=== PATIENT | male | born 1980 | race Caucasian/White ===

== ENCOUNTER 2024-04-07 14:46 | Outpatient (AMB) | payer BC, SELFPAY ==
--- NOTE | 2024-04-07 14:59 | MHC.PC.OV ---
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 Intake Note: establish care Allergies No Known Allergies Allergy (Verified 04/07/24 15:03) Medication List - Last Reconciled 04/07/24 by Gene Romero MD No Known Home Meds Tobacco use date assessed: 04/07/24 Dental Screening Dental Screen Date: 04/07/24 Did you have a dental visit in the last 12 months?: Yes Did you have a dental problem in the last 6 months where you did not have access to dental care?: No Was dental information given to patient?: Patient has dentist HPI ENVIRONMENTAL SERVICE AIDE requesting physical HPI Details New Patient Prior PCP: None Last office visit/CPE: - Acute issue(s): PMHx: R malleolus fracture, poison braeden SurgHx: Repair?right?malleolar?fracture 2017 FHx: Dad: Colon polyps, early 50s, HTN. Grandmother: Colon cancer. SocHx: Nonsmoker. EtOH 1-2 glass wine per week. Eats a healthy diet. Keeps himself active at a farm. HPI Comments History of Present Illness Details Documentation assistance for Gene Romero MD, was provided by Lawrence Falcon, Ophthalmic Lens Inspector on 04/07/2024 at 3:43 PM EST. I, Dr. Romero, have read, observed, and verified documentation. [facility] Social History (Updated 04/07/24 @ 15:03 by Millie Boykin [facility]) Housing: House Patient Tobacco Use Status: Never used Tobacco e-Cigarette/Vaping Use: Never Used Second Hand Smoke Exposure: No Use of substances other than those prescribed or required for medical reasons: No service: Yes Current occupational status: employed Current occupation: [employer] Current occupational exposures/hazards: Yes Cognitive needs: No Hearing needs: No Vision needs: No Questionnaire PHQ-9 Over the last 2 weeks, how often have you been bothered by any of the following problems? 1. Little interest or pleasure in doing things: not at all 2. Feeling down, depressed, or hopeless: not at all 3. Trouble falling or staying asleep, or sleeping too much: not at all 4. Feeling tired or having little energy: not at all 5. Poor appetite or overeating: not at all 6. Feeling bad about yourself - or that you are a failure or have let yourself or your family down: not at all 7. Trouble concentrating on things, such as reading the newspaper or watching television: not at all 8. Moving or speaking so slowly that other people could have noticed. Or the opposite - being so fidgety or restless that you have been moving around a lot more than usual: not at all 9. Thoughts that you would be better off or of hurting yourself in some way: not at all Total score: 0 Depression Screening Interpretation: Negative Depression Screening Done: Yes 85698 - PHQ-9 Billing: Yes Source: Developed by Drs. Clarence Thorne, Yue Gaytan, Marty Gray and colleagues, with an educational angela from [employer]. Thrive Questionnaire Date Thrive assessed: 04/07/24 I am a: Patient What is your living situation today?: I have a steady place to live Within the past 12 months, did the food you bought not last and you didn't have the money to get more?: Never true Within the past 12 months, did you worry whether your food would run out before you got money to buy more?: Never true Do you have trouble paying for medicines?: No Do you have trouble getting transportation to medical appointments?: No Do you have trouble paying your heating and electricity bill?: No Do you have trouble taking care of your child, family member or friend?: No Do you have trouble with day-to-day activities such as bathing, preparing meals, shopping, managing finances, etc.?: No Are you currently unemployed and looking for a job?: No Are you interested in more education?: No Please select the resources that you would like help with: None Currently or been in a relationship where the following occur: No concerns reported THRIVE Score: 0 AUDIT C Alcohol Use Questionnaire (AUDIT-C) 1. How often do you have a drink containing alcohol?: 2-3 times a week 2. How many drinks containing alcohol do you have on a typical day when you are drinking?: 1 or 2 3. How often do you have six or more drinks on one occasion?: Less than monthly Total Score: 4 JAIMIE-7 AMB Questionnaire JAIMIE-7 Date JAIMIE - 7 assessed: 04/07/24 Feeling nervous, anxious, or on edge: 0 = Not at all Not being able to stop or control worryin = Not at all Worrying too much about different things: 0 = Not at all Trouble relaxin = Not at all Being so restless that it is hard to sit still: 0 = Not at all Becoming easily annoyed or irritable: 0 = Not at all Feeling afraid as if something awful might happen: 0 = Not at all Total JAIMIE-7 score (0-4 normal; 5-9 mild; 10-14 moderate; 15-21 severe): 0 Source: Developed by Drs. Clarence Thorne, Yue Gaytan, Marty Gray and colleagues, with an educational angela from [employer]. JAIMIE-7 Assessment Billing JAIMIE-7 Assessment Tool: JAIMIE-7 Assessment 11483 Review of Systems Const Denies chills, Denies fatigue, Denies fever(s), Denies headache(s) and Denies weakness Eyes Denies change in vision ENT Denies dizziness, Denies headache(s), Denies hearing loss, Denies nasal congestion, Denies sinus pain, Denies sinus pressure and Denies sore throat Card Denies chest pain, Denies lightheadedness, Denies dyspnea and Denies other (palpitations) Resp Denies cough, Denies dyspnea and Denies wheezing GI Denies abdominal pain, Denies melena, Denies hematochezia, Denies change in bowel habits, Denies dyspepsia and Denies nausea Denies hematuria and Denies dysuria Musc Denies abnormal gait, Denies myalgias, Denies arthralgias, Denies numbness and Denies tingling Skin/Breast Denies rash, Denies unusual bruising and Denies wounds Neuro Denies abnormal gait, Denies dizziness, Denies headache(s), Denies memory loss, Denies numbness, Denies Sensory deficit (Neuro), Denies tingling and Denies weakness Psych Denies anxiety, Denies depression and Denies memory loss Endo Denies cold intolerance, Denies fatigue, Denies heat intolerance, Denies polydipsia and Denies polyuria Adarsh/Lymph Denies easy bleeding and Denies easy bruising Aller/Immun Denies wheezing Physical exam (Primary Care) Vital Signs: Last Vital Signs Temp 98.0 F 04/07/24 15:06 Pulse 69 04/07/24 15:06 Resp 16 04/07/24 15:06 BP 110/68 04/07/24 15:06 Pulse Ox 99 04/07/24 15:06 Oxygen Delivery Method Room Air 04/07/24 15:06 BMI result Body Mass Index 27.8 Tobacco/Smoking Status: Tobacco use Status Tobacco use date assessed 04/07/24 04/07/24 15:09 Patient Tobacco Use Status Never used Tobacco 04/07/24 15:09 e-Cigarette/Vaping Use Never Used 04/07/24 15:09 PHQ-9: PHQ-9 Score PHQ-9: Total score 0 04/07/24 15:30 Depression Screening Interpretation: Negative Thrive Assessment: Date of Thrive Assessment Date Thrive assessed 04/07/24 04/07/24 15:09 Currently or been in a relationship where the following occur: No concerns reported Const General: no acute distress, well developed, alert and awake Nutritional Appearance: well nourished Orientation/consciousness: patient oriented x3 HENMT Head: Yes normocephalic and Yes atraumatic Ears: hearing grossly normal bilaterally and TM's normal bilaterally General nose exam: Normal external nose present and Normal nares present Mouth: Normal oral and palatal mucosa present and moist mucous membranes Teeth and gingiva: dentition normal Throat: Yes posterior oropharynx normal Eyes General: appearance normal, both eyes and all related structures Pupils: Equal, round and reactive pupils present and Pupil accommodation reflex normal EOM: EOMs intact bilaterally Neck Neck: Yes normal visual inspection, Yes no lymphadenopathy and Yes trachea midline Thyroid: Thyroid normal Carotids: no bruits Lymphatic: no lymphadenopathy noted Chest Chest palpation & inspection: normal inspection of the chest Resp Effort & Inspection: normal respiratory effort Auscultation: clear to auscultation bilaterally Cardio Rate: regular rate Rhythm: regular rhythm Heart sounds: S1 normal heart sound present, S2 normal heart sound present, no gallops, no murmurs and no rubs Bruits: no abdominal aortic bruits and no carotid bruits GI Palpation (GI): No Abdominal aortic bruit present, Soft to palpation, nontender, No hepatosplenomegaly present and No Rebound tenderness present Auscultation: normal bowel sounds General: Yes no CVA tenderness Back/Spine/Pelvis Back: no CVA tenderness Cervical Spine: cervical ROM normal and No Cervical spine tenderness Thoracic/Lumbar Spine: thoraco-lumbar ROM normal, No pain with thoraco-lumbar ROM, No thoracic spinal tenderness and No lumbar spinal tenderness Skin Lesions: no lesions Rashes: no rashes Trauma: no lacerations or abrasions Wounds: no wounds Nails: normal Neuro General: patient oriented x3 Cranial nerves: Yes Equal, round and reactive pupils present Cognition (Neuro): normal cognition Gait exam (Neuro): Normal gait present Motor exam (neuro): 5/5 motor strength present throughout Sensory Exam: No Sensory deficit (Neuro) Deep tendon reflexes (DTR's): Right patellar reflex intensity grade: 2+ and Left patellar reflex intensity grade: 2+ Extrem General: Yes normal to inspection and No edema Psych Appearance: grossly normal Affect: normal affect Attitude: cooperative Thought process: Normal thought process present Assessment and Plan Assessment & Plan (1) Adult general medical exam: Code(s): Z00.00 - Encounter for general adult medical examination without abnormal findings Plan: 43-year-old?male?presents?as?new?patient?for?complete?physical?exam Encouraged?healthy?diet?with?active?lifestyle?and?plenty?of?exercise (2) Screening for colon cancer: Code(s): Z12.11 - Encounter for screening for malignant neoplasm of colon Plan: Strong?family?history?of?colon?cancer?and?polyps. Referred?to?Gastroenterology (3) Screening for prostate cancer: Code(s): Z12.5 - Encounter for screening for malignant neoplasm of prostate Plan: Check?PSA Orders: Orders Microalbumin, Random (w Creat) Today I10 - Essential (primary) hypertension, Z00.00 - Encounter for general adult medical examination without abnormal findings Prostate Specific Antigen Scr Today Z00.00 - Encounter for general adult medical examination without abnormal findings, Z12.5 - Encounter for screening for malignant neoplasm of prostate TSH reflex Free T4 Today Z00.00 - Encounter for general adult medical examination without abnormal findings Lipid Panel Today Z00.00 - Encounter for general adult medical examination without abnormal findings UA and rflx microscopic Today Z00.00 - Encounter for general adult medical examination without abnormal findings Comprehensive [place]. Panel Fast Today Z00.00 - Encounter for general adult medical examination without abnormal findings Referrals Gastroenterology Referral Z12.11 - Encounter for screening for malignant neoplasm of colon, Z83.719 - Family history of colon polyps, unspecified Coding Level of Care Code New Pt Level 3 (23155) New Pt Prev Care 40-64y(57195) Diagnoses Adult general medical exam Z00.00 Screening for colon cancer Z12.11 Screening for prostate cancer Z12.5 Additional Codes JAIMIE-7 Assessment Billing - JAIMIE-7 Assessment Tool: JAIMIE-7 Assessment 93823 ([id number])
[2024-04-07 15:06] VITALS: BP 110/68; PULSE 69; RESP 16; TEMP 36.7; O2SAT 99; BMI 27.8
== END 2024-04-07 15:50 | disposition home or self-care (01) ==
PROVIDERS: PCP Family Medicine; Visit Provider Family Medicine
DX: Z00.00 Encounter for general adult medical examination without abnormal findings (principal); Z12.11 Encounter for screening for malignant neoplasm of colon; Z12.5 Encounter for screening for malignant neoplasm of prostate

== ENCOUNTER → 2024-04-07 14:46 | Outpatient (BNVA) | payer BC, SELFPAY | PROVIDERS: Visit Provider Family Medicine | DX: Z00.00 Encounter for general adult medical examination without abnormal findings (principal) | CPT/HCPCS: 96127 ==

== ENCOUNTER 2024-05-15 06:33 | Outpatient (REF) | payer BC, SELFPAY ==
[2024-05-15 07:49] LABS: Alanine Aminotransferase 23 U/L (0-40); Albumin Level 4.1 g/dL (3.5-5.0); Alkaline Phosphatase 109 U/L (39-117); Anion Gap 14 (12-20); Aspartate Amino Transferase 33 U/L (5-37); Bilirubin Total 0.4 mg/dL (0.0-1.0); Blood Urea Nitrogen 13 mg/dL (9-16); Calcium 9.4 mg/dL (8.4-10.2); Carbon Dioxide 26 mmol/L (22-29); Chloride 100 mmol/L (96-108); Cholesterol 268 mg/dL (<200); Estimated Glomerular Filt Rate > 60; Glucose Fasting 293 mg/dL (60-99); HDL Cholesterol 47 mg/dL (>40); Potassium 4.6 mmol/L (3.3-5.1); Sodium 135 mmol/L (135-145); Total Protein 7.5 g/dL (6.5-8.0); Triglycerides 502 mg/dL (<150)
[2024-05-15 07:57] LABS: Appearance Urine Clear; Color Urine Yellow; Glucose Urine UA >=1000 mg/dL (Negative); Leukocyte Esterase Urine Negative (Negative); Nitrite Urine Negative (Negative); PH 6.5 (5.0-9.0); Specific Gravity - Urine 1.025 (1.005-1.025); UMIC TRIGGER UA YES; Urine Blood Negative (Negative); Urine Ketones Trace mg/dL (Negative); Urine Protein Negative (Neg-Trace)
[2024-05-15 08:01] LABS: Prostate Specific Antigen Scr 0.65 ng/mL (<0.05-4.0)
[2024-05-15 08:02] LABS: Bacteria Urine None Seen (None Seen); Hyaline Casts Urine 0-2 /LPF (0-2); RBC Urine 0-2 /HPF (0-2); Squamous Epithelial Cell Urine 0-2 /HPF (0-2); WBC Urine 0-5 /HPF (0-5)
[2024-05-15 08:19] LABS: Creatinine Urine 89.79 mg/dL; Microalbumin Urine < 5.0 mg/L
== END 2024-05-15 06:34 | disposition home or self-care (01) ==
LOC: HO.LAB 06:33
PROVIDERS: PCP Family Medicine; Visit Provider Family Medicine
DX: Z00.00 Encounter for general adult medical examination without abnormal findings (principal); I10 Essential (primary) hypertension; Z12.5 Encounter for screening for malignant neoplasm of prostate
CPT/HCPCS: 36415; 80053; 80061; 81001; 82043; 82570; 84153; 84443

== ENCOUNTER → 2024-05-26 14:03 | Outpatient (AMB) | payer BC, SELFPAY ==
--- NOTE | 2024-05-26 14:01 | A.OFFPC_ITS ---
Intake Visit Reasons: f/u CPE-labs via telemedicine Allergies No Known Allergies Allergy (Verified 05/26/24 14:01) Tobacco use date assessed: 04/07/24 Dental Screening Dental Screen Date: 04/07/24 HPI f/u CPE-labs via telemedicine HPI Details 43 y/o male presents to f/u CPE-labs via telemedicine. Labs drawn 05/15/24. Reviewed labs with pt. Fasting glucose of 293. He states he was fasting for about 10 hours. Triglycerides 502. TC 268. LDL TNP. HDL 47. Has not been diagnosed with diabetes in the past. Denies any excessive thirst/urination. [facility] Social History (Updated 04/07/24 @ 15:03 by Millie Boykin [facility]) Housing: House Patient Tobacco Use Status: Never used Tobacco e-Cigarette/Vaping Use: Never Used Second Hand Smoke Exposure: No service: Yes Current occupational status: employed Current occupation: [employer] Current occupational exposures/hazards: Yes Cognitive needs: No Hearing needs: No Vision needs: No Questionnaire Thrive Questionnaire Date Thrive assessed: 04/07/24 JAIMIE-7 AMB Questionnaire JAIMIE-7 Date JAIMIE - 7 assessed: 04/07/24 Source: Developed by Drs. Clarence Thorne, Yue Gaytan, Marty Gray and colleagues, with an educational angela from [employer]. Review of Systems Const Denies chills, Denies fatigue, Denies fever(s), Denies headache(s) and Denies weakness ENT Denies dizziness and Denies headache(s) Card Denies dyspnea Resp Denies cough, Denies dyspnea, Denies wheezing and Denies other (shortness of breath) Musc Denies numbness and Denies tingling Neuro Denies dizziness, Denies headache(s), Denies numbness, Denies tingling and Denies weakness Psych Denies anxiety and Denies depression Endo Denies fatigue Aller/Immun Denies wheezing Physical exam (Primary Care) Tobacco/Smoking Status: Tobacco use Status Tobacco use date assessed 04/07/24 05/26/24 14:02 Patient Tobacco Use Status Never used Tobacco 05/26/24 14:02 e-Cigarette/Vaping Use Never Used 05/26/24 14:02 Thrive Assessment: Date of Thrive Assessment Date Thrive assessed 04/07/24 05/26/24 14:02 Telehealth Telehealth Telehealth Platform: Telephone Location of provider rendering services: practice address Location of patient: address on file Patient Identification confirmed using: Name, : Yes Telehealth method: voice only Patient verbally consented to treatment: Yes Patient verbally consented to billing insurance company: Yes Patient informed of any privacy concerns related to visit: Yes Minutes spent on Phone/Video with Pt.: 6 Coding Level of Care Code Tele Est Pt Level 2 (22517) Diagnoses Elevated fasting glucose R73.01 Hypertriglyceridemia E78.1 Assessment & Plan Assessment & Plan (1) Elevated fasting glucose: Code(s): R73.01 - Impaired fasting glucose Category: Medical Plan: Significantly?elevated?fasting?blood?sugar?though?patient?is?unaware?of?any?hist ory?of?diabetes. He?thinks?that?he?had?an?adequate?fast Will?recheck?this?follow-up?with?him?within?a?month Will?also?check?an?A1c (2) Hypertriglyceridemia: Code(s): E78.1 - Pure hyperglyceridemia Category: Medical Plan: Triglycerides?greater?than?500 Start?fenofibrate Will?recheck?this?and?follow-up?at?next?visit
== END ==
LOC: HO.HMCFM 14:03
PROVIDERS: PCP Family Medicine; Visit Provider Family Medicine
DX: R73.01 Impaired fasting glucose (principal); E78.1 Pure hyperglyceridemia

== ENCOUNTER 2024-06-25 06:45 | Outpatient (REF) | payer BC, SELFPAY ==
--- OUTSIDE RECORDS SUMMARY | 2024-06-25 06:47 | XMS_ITS ---
Author Name [facility] Organization Unknown History of Medication Use Medication Directions Dispensed Refills Start Date End Date Stat us fenofibrate (TRIGLIDE) 160 MG tablet Take 160 mg by mouth. FOR 90 DAYS 06/22/2024 07/08/9999 active predniSONE (DELTASONE) 50 MG tablet Take 1 tablet (50 mg total) by mouth daily. With food. 06/22/2024 07/08/9999 aborted predniSONE (DELTASONE) 10 MG tablet Take 60 mg (= 6 tablets) by mouth daily for 2 days, then 50 mg (= 5 tablets) daily for 2 days, then 40 mg (= 4 tablets) daily for 2 days, then 30 mg (= 3 tablets) daily for 2 days, then 20 mg (= 2 tablets) daily for 2 days, then 10 mg (= 1 tablet) daily for 2 days. Take with food. 01/28/2023 active Problems Problem Status Onset Date Problem Type Date of Resoluti on Source Allergic dermatitis [facility]
[2024-06-25 07:19] LABS: Estimated Average Glucose 206 mg/dL; Hemoglobin A1C 261.8796 umol/L; Hemoglobin A1c % 8.8 % (<6.0); Total Hemoglobin (HGBA1C) 3626.4181 umol/L
[2024-06-25 07:33] LABS: Appearance Urine Clear; Color Urine Yellow; Glucose Urine UA Negative (Negative); Leukocyte Esterase Urine Negative (Negative); Nitrite Urine Negative (Negative); Urine Blood Negative (Negative); Urine Ketones Negative (Negative); Urine Protein Negative (Neg-Trace)
[2024-06-25 07:37] LABS: Alanine Aminotransferase 30 U/L (0-40); Albumin Level 4.1 g/dL (3.5-5.0); Alkaline Phosphatase 70 U/L (39-117); Anion Gap 9 (12-20); Aspartate Amino Transferase 25 U/L (5-37); Bilirubin Total 0.4 mg/dL (0.0-1.0); Blood Urea Nitrogen 14 mg/dL (9-16); Calcium 8.9 mg/dL (8.4-10.2); Carbon Dioxide 28 mmol/L (22-29); Chloride 105 mmol/L (96-108); Cholesterol 143 mg/dL (<200); Estimated Glomerular Filt Rate > 60; Glucose Fasting 201 mg/dL (60-99); HDL Cholesterol 43 mg/dL (>40); LDL Cholesterol Calculated 84 mg/dL (<100); Potassium 3.9 mmol/L (3.3-5.1); Sodium 138 mmol/L (135-145); Total Protein 7.2 g/dL (6.5-8.0); Triglycerides 84 mg/dL (<150)
== END 2024-06-25 06:46 | disposition home or self-care (01) ==
LOC: HO.LAB 06:45
PROVIDERS: PCP Family Medicine; Visit Provider Family Medicine
DX: Z00.00 Encounter for general adult medical examination without abnormal findings (principal); E78.1 Pure hyperglyceridemia; R73.01 Impaired fasting glucose
CPT/HCPCS: 36415; 80053; 80061; 81003; 83036

== ENCOUNTER 2024-07-07 14:18 | Outpatient (AMB) | payer BC, SELFPAY ==
--- NOTE | 2024-07-07 14:15 | MHC.PC.OV ---
Intake Visit Reasons: F/U appointment Intake Note: f/u labs Allergies No Known Allergies Allergy (Verified 07/07/24 14:15) Tobacco use date assessed: 04/07/24 Dental Screening Dental Screen Date: 04/07/24 HPI F/U appointment HPI Details 44 y/o male presents to f/u A1c, hypertriglyceridemia. Had started him on fenofibrate. Triglycerides improved from 502 to 84. TC 268 to 143. LDL 84. HDL 43. A1c 8.8%. He reports no prior diagnosis of diabetes. He states he has not been to a doctor in a long time. HPI Comments History of Present Illness Details Documentation assistance for Gene Romero MD, was provided by Lawrence Falcon,? Research Worker Encyclopedia on 07/07/2024 at 5:23 PM EST. I, Dr. Romero, have read, observed, and verified documentation. ?? [facility] Social History (Updated 04/07/24 @ 15:03 by Millie Boykin, [facility]) Housing: House Patient Tobacco Use Status: Never used Tobacco e-Cigarette/Vaping Use: Never Used Second Hand Smoke Exposure: No service: Yes Current occupational status: employed Current occupation: [employer] Current occupational exposures/hazards: Yes Cognitive needs: No Hearing needs: No Vision needs: No Questionnaire Thrive Questionnaire Date Thrive assessed: 04/07/24 JAIMIE-7 AMB Questionnaire JAIMIE-7 Date JAIMIE - 7 assessed: 04/07/24 Source: Developed by Drs. Clarence Thorne, Yue Gaytan, Marty Gray and colleagues, with an educational angela from [employer]. Review of Systems Const Denies chills, Denies fatigue, Denies fever(s), Denies headache(s) and Denies weakness ENT Denies dizziness and Denies headache(s) Card Denies dyspnea Resp Denies cough, Denies dyspnea, Denies wheezing and Denies other (shortness of breath) Musc Denies numbness and Denies tingling Neuro Denies dizziness, Denies headache(s), Denies numbness, Denies tingling and Denies weakness Psych Denies anxiety and Denies depression Endo Denies fatigue Aller/Immun Denies wheezing Physical exam (Primary Care) Tobacco/Smoking Status: Tobacco use Status Tobacco use date assessed 04/07/24 07/07/24 14:17 Patient Tobacco Use Status Never used Tobacco 07/07/24 14:17 e-Cigarette/Vaping Use Never Used 07/07/24 14:17 Thrive Assessment: Date of Thrive Assessment Date Thrive assessed 04/07/24 07/07/24 14:17 Telehealth Telehealth Telehealth Platform: Telephone Location of provider rendering services: practice address Location of patient: address on file Patient Identification confirmed using: Name, : Yes Telehealth method: voice only Patient verbally consented to treatment: Yes Patient verbally consented to billing insurance company: Yes Patient informed of any privacy concerns related to visit: Yes Minutes spent on Phone/Video with Pt.: 11 Coding Level of Care Code Tele Est Pt Level 2 (25458) Diagnoses Hypertriglyceridemia E78.1 Diabetes E11.9 Assessment & Plan Assessment & Plan (1) Hypertriglyceridemia: Code(s): E78.1 - Pure hyperglyceridemia Category: Medical Plan: Significant?improvement?with?fenofibrate Continue?this?medication?for?now?and?watch?saturated?fats?and?cholesterol?in?diet Patient?also?has?significantly?elevated?fasting?blood?sugar?and?this?is?likely?contributing?to?his?hypertriglyceridemia - see?below (2) Diabetes: Code(s): E11.9 - Type 2 diabetes mellitus without complications Category: Medical Plan: A1c?8.8%?is?uncontrolled?diabetes. Strong?family?history?of?diabetes?as?well Start?metformin?500?mg?b.i.d. Continue?working?on?a?diet?low?in?sugars?and?starches Will?follow-up?in?3?months.??Will?also?discuss?diabetic?teaching?and?eye?exams?at?that?time Orders: Orders Comprehensive [place]. Panel Fast Today E11.9 - Type 2 diabetes mellitus without complications, Z00.00 - Encounter for general adult medical examination without abnormal findings Hemoglobin A1c Today E11.9 - Type 2 diabetes mellitus without complications, R73.01 - Impaired fasting glucose Lipid Panel Today E78.1 - Pure hyperglyceridemia, Z00.00 - Encounter for general adult medical examination without abnormal findings Medications: New metformin 500 mg PO BID 90 days 180 tabs 2RF
== END 2024-07-07 17:05 | disposition home or self-care (01) ==
LOC: HO.HMCFM 14:18
PROVIDERS: PCP Family Medicine; Visit Provider Family Medicine
DX: E78.1 Pure hyperglyceridemia (principal); E11.9 Type 2 diabetes mellitus without complications

== ENCOUNTER 2024-09-09 07:53 | Outpatient (AMB) | payer BC, SELFPAY ==
--- OUTSIDE RECORDS SUMMARY | 2024-09-09 07:56 | XMS_ITS | Clinical Summary ---
Author Organization [facility] Address [address] [place] [address] Care Team Providers Care Service Plumber Name Role Phone Manuel Peters Primary Care Provider Unavailabl e Active Problems Problem Noted Date Diagnosed Date Hyperglycemia 01/31/2012 Immunizations Name Administration Dates Next Due Tdap 01/31/2012 Social History Tobacco Use Types Packs/Day Years Used Date Smoking Tobacco: Never Assessed Comments:Smoking Status:Eder larsen smoker Sex and Gender Information Value Date Recorded Sex Assigned at Not on file Legal Sex Male 6:07 PM EDT Gender Identity Not on file Sexual Orientation Not on file Last Filed Vital Signs Vital Sign Reading Time Taken Comments Blood Pressure 116/74 01/31/2012 10:24 AM EDT Pulse 70 01/31/2012 10:24 AM EDT Temperature 36.7 ??C (98 ??F) 01/31/2012 10:24 AM EDT Respiratory Rate - - Oxygen Saturation - - Inhaled Oxygen Concentration - - Weight 90.7 kg (200 lb 0.1 oz) 01/31/2012 10:24 AM EDT Height 185.4 cm (6' 1 ) 01/31/2012 10:24 AM EDT Body Mass Index 26.39 01/31/2012 10:24 AM EDT Plan of Treatment Health Maintenance Due Date Last Done Comments Hepatitis C Screening 1981 Hep B (1 of 3 - 19+ 3-dose series) 2000 DTaP/Tdap/Td (2 - Td or Tdap) 01/30/2022 01/31/2012 COVID-19 Vaccine ( - 2023-2 5 season) 2024 Influenza (#1) 2024 Zoster (Shingrix) (1 of 2) 2031 HPV Vaccine Aged Out No longer eligi ble based on patient's age to complete this topic Hep A Aged Out No longer eligi ble based on patient's age to complete this topic Hib Aged Out No longer eligi ble based on patient's age to complete this topic Meningococcal ACWY Aged Out No longer eligible based on patient's age to complete this topic Pneumococcal Aged Out No longer eligi ble based on patient's age to complete this topic Care Teams Service Plumber Relationship Specialty Start Date End Date Manuel Peters PCP - General 02/12/23
--- OUTSIDE RECORDS SUMMARY | 2024-09-09 07:56 | XMS_ITS | Clinical Summary ---
Author Organization [facility] Address [address] [place] [address] Care Team Providers Care Supervisor Canvas Products Name Role Phone Gene Romero MD Primary Care Provider [phone] Allergies No known active allergies Medications Medication Sig Dispensed Refills Start Date End Date Status fenofibrate (TRIGLIDE) 160 MG tablet Take 160 mg by mouth. FOR 90 DAYS 05/26/2024 Active predniSONE (DELTASONE) 50 MG tabletIndications:Dada rgic dermatitis Take 1 tablet (50 mg total) by mouth daily. With food. 5 tablet 06/20/2024 Active Active Problems No known active problems Encounters Date Type Department Care Team Description 06/20/2024 9:30 AM EST Office Visit [facility] [address] [address] Naeem Lewis MD de Villier, Daryl, PAFroyC Allergic dermatitis (Primary Dx) 06/20/2024 Travel 06/20/2024 Scanned Document [facility] [address] [facility] [address] [place] [phone] Provider, Generic 06/20/2024 Scanned Document [facility] [address] [facility] [address] [place] [address] Provider, Generic from Last 3 Months Social History Tobacco Use Types Packs/Day Years Used Date Smoking Tobacco: Never Smokeless Tobacco: Never Tobacco Cessation:Counseling Given: Not Answered Sex and Gender Information Value Date Recorded Sex Assigned at Not on file Gender Identity Not on file Sexual Orientation Not on file Last Filed Vital Signs Vital Sign Reading Time Taken Comments Blood Pressure 138/92 06/20/2024 10:07 AM EST Pulse 64 06/20/2024 10:07 AM EST Temperature 36.9 ??C (98.4 ??F) 06/20/2024 10:[address] Respiratory Rate 18 06/20/2024 10:07 AM EST Oxygen Saturation 100% 06/20/2024 10:07 AM EST Inhaled Oxygen Concentration - - Weight 93 kg (205 lb) 06/20/2024 10:07 AM EST Height 188 cm (6' 2 ) 06/20/2024 10:07 AM EST Body Mass Index 26.32 06/20/2024 10:07 AM EST Plan of Treatment Health Maintenance Due Date Last Done Comments Hepatitis C Virus Screening 1981 HIV Screening 1994 DTaP/Tdap/Td Vaccines (1 - Tdap) 2000 Hepatitis B Vaccines (1 of 3 - 19+ 3-dose series) 2000 Influenza Vaccine 02/07/2024 COVID-19 Vaccine ( - 2023-2 5 season) 2024 HPV Vaccines Aged Out No longer eligi ble based on patient's age to complete this topic Pneumococcal Vaccine: Pediat jaskaran (0-5 Years) and At-Risk Patients (6 to 49 Years) Aged Out No longer eligible b ased on patient's age to complete this topic Care Teams Supervisor [employer] Products Relationship Specialty Start Date End Date Gene Romero MD [address] [place] [address] Dr Adelso [place] [id number] PCP - General Family Medicine 06/20/24
--- OUTSIDE RECORDS SUMMARY | 2024-09-09 07:56 | XMS_ITS | Clinical Summary ---
Author Organization [facility] Address [address] [place] [address] Care Team Providers Care Burner Shaft Name Role Phone Manuel Peters MD Primary Care Provider [phone] Allergies No known active allergies Medications Medication Sig Dispensed Refills Start Date End Date Status oxyCODONE-acetaminophe n (PERCOCET) 5-325 MG per tablet 1-2 PO Q4-6 HOURS PRN 50 tablet 0 07/10/2017 Active aspirin 81 MG EC tablet 1 PO BID 30 tablet 1 07/10/2017 Active Social History Tobacco Use Types Packs/Day Years Used Date Smoking Tobacco: Never Smokeless Tobacco: Never Alcohol Use Standard Drinks/Week Comments Yes 0 (1 standard drink = 0.6 oz pur e alcohol) < weekly Sex and Gender Information Value Date Recorded Sex Assigned at Not on file Gender Identity Not on file Sexual Orientation Not on file Last Filed Vital Signs Vital Sign Reading Time Taken Comments Blood Pressure 122/80 07/10/2017 3:44 PM EST Pulse 63 07/10/2017 3:44 PM EST Temperature 36.7 ??C (98.1 ??F) 07/10/2017 3:15 PM ES T Respiratory Rate 18 07/10/2017 3:44 PM EST Oxygen Saturation 98% 07/10/2017 3:44 PM EST Inhaled Oxygen Concentration - - Weight 95.3 kg (210 lb) 07/06/2017 2:35 PM EST Height 188 cm (6' 2 ) 07/06/2017 2:35 PM EST Body Mass Index 26.96 07/06/2017 2:35 PM EST Plan of Treatment Not on file Medical Devices Implanted Type Area Mica Inspector Device Identifier Shelf Expiration Date Model / Serial / Lot Screw Lcp Long Thread 42mm 4mm 5mm [employer] - [id number] - [id number] Implanted:Qty: 2 on 07/10/2017 by Ryan Graves MD at [facility] and [facility] Right: [employer] [id number] / / Care Teams Burner Shaft Relationship Specialty Start Date End Date Manuel Peters MD [address] [place] [address] PCP - General Melter Helper 07/06/17
--- OUTSIDE RECORDS SUMMARY | 2024-09-09 07:56 | XMS_ITS | Clinical Summary ---
Author Organization [facility] Address [address] [place] [address] Care Team Providers Care Bar Host/Hostess Name Role Phone Manuel Peters MD Primary Care Provider [phone] Surgical History Surgery Date Site/Laterality Comments NO PAST SURGERIES PROCEDURE:NO PAST SURGERIES ANKLE FRACTURE SURGERY 07/10/2017 Right PROCEDURE:ANKLE FRACTURE SURGERY;COMMENT:Procedure: ORIF RIGHT MEDIAL MALLEOLUS; Surgeon: Ryan Graves MD; Location: [facility]; [facility]; Laterality: Right; Medical History Medical History Date Comments Medial malleolar fracture 06/2017 DX:Med ial malleolar fracture;COMMENT:right Social History Tobacco Use Types Packs/Day Years Used Date Smoking Tobacco: Never Smokeless Tobacco: Never Alcohol Use Standard Drinks/Week Comments Yes 0 (1 standard drink = 0.6 oz pur e alcohol) Sex and Gender Information Value Date Recorded Sex Assigned at Not on file Legal Sex Male 11:44 AM EST Gender Identity Not on file Sexual Orientation Not on file Obstetrics History Plan of Treatment Health Maintenance Due Date Last Done Comments DTaP,Tdap,and Td Vaccines (1 - Tdap) 2000 Hepatitis B Vaccines (1 of 3 - 19+ 3-dose series) 2000 COVID-19 Vaccine (2023-2 5 season) 2024 Influenza Vaccine (#1) 2024 HIB Vaccines Aged Out No longer eligi ble based on patient's age to complete this topic HPV Vaccines Aged Out No longer eligi ble based on patient's age to complete this topic Hepatitis A Vaccines Aged Out No long er eligible based on patient's age to complete this topic IPV Vaccines Aged Out No longer eligi ble based on patient's age to complete this topic MMR Vaccines Aged Out No longer eligi ble based on patient's age to complete this topic Meningococcal ACWY Vaccine Aged Out N o longer eligible based on patient's age to complete this topic Meningococcal B Vacine Aged Out No lo nger eligible based on patient's age to complete this topic Pneumococcal Vaccine: Pediat rics (0 to 5 Years) and At-Risk Patients (6 to 64 Years) Aged Out No longer eligible b ased on patient's age to complete this topic RSV Immunization Patients Un trip 20 months Aged Out No longer eligible b ased on patient's age to complete this topic Varicella Vaccines Aged Out No longer eligible based on patient's age to complete this topic Care Teams Bar Host/Hostess Relationship Specialty Start Date End Date Manuel Peters MD PCP - General Pipe Manufacture Supervisor 07/06/17
--- OUTSIDE RECORDS SUMMARY | 2024-09-09 07:56 | XMS_ITS | Encounter Summary ---
Author Organization [facility] Address [address] [place] [address] Care Team Providers Care Modern Dancer Name Role Phone Gene Romero MD Primary Care Provider [phone] Encounter Details Date Type Department Care Team (Late st Contact Info) Description 06/20/2024 Scanned Document [address] [facility] [address] [place] [phone] Provider, Generic Social History Tobacco Use Types Packs/Day Years Used Date Smoking Tobacco: Never Smokeless Tobacco: Never Sex and Gender Information Value Date Recorded Sex Assigned at Not on file Gender Identity Not on file Sexual Orientation Not on file documented as of this encounter Plan of Treatment Not on file documented as of this encounter Visit Diagnoses Not on filedocumented in this encounter Care Teams Modern Dancer Relationship Specialty Start Date End Date Gene Romero MD [address] [place] [address] [place] [address] PCP - General Family Medicine 06/20/24 documented as of this encounter
--- OUTSIDE RECORDS SUMMARY | 2024-09-09 07:56 | XMS_ITS | Encounter Summary ---
Author Organization [facility] Address [address] [place] [address] Care Team Providers Care Theater Company Producer Name Role Phone Gene Romero MD Primary Care Provider [phone] Encounter Details Date Type Department Care Team (Late st Contact Info) Description 06/20/2024 Scanned Document [address] [facility] [address] [place] [phone] Provider, Generic Social History Tobacco Use [...] on filedocumented in this encounter Care Teams Theater Company Producer Relationship Specialty Start Date End Date Gene Romero MD [address] [place] [address] [place] [address] PCP - General Family Medicine 06/20/24 documented as of this encounter
--- NOTE | 2024-09-09 08:04 | A.OFFVIS_ITS ---
Vital Signs 09/09/24 08:15 Height 6 ft 2 in Weight 200 lb 9.93 oz BMI 25.8 BP 126/66 Blood Pressure Location Rt brachial Position Sitting Pulse 64 Pulse Source Pulse Oximeter Pulse Oximetry (%) 100 Oxygen Delivery Method Room Air Intake Visit Reasons: Colonoscop Screening Intake Note: NEW PATIENT for initial screening Chief Complaint; Pt denies any GI concerns at this time. Does report + FMHx (maternal). Drill Sergeant Required: No Accompanied by: Self / Same As Patient Allergies No Known Allergies Allergy (Verified 09/09/24 08:05) HPI HPI Colonoscop Screening: Details: ear old? female here today for pre colonoscopy screening.? Patient was sent to us by his PCP.? This is his first colonoscopy screening.? Patient denies any gastrointestinal symptoms in the past or at present.? Patient's maternal grandmother had CRC in her early 50s. Patient's father also had multiple polyps and had them removed. He goes for colonoscopy screening every 2-3 years.? De nies history of difficulty with sedation or anesthesia in the past.? Negative for history of sleep apnea.? Denies any history of cardiac, renal, pulmonary, or hepatic disease.?? No history of infectious? diseases like hepatitis A, B, C, HIV or tuberculosis.? Patient is not on any anticoagulation PFSH Family History Maternal Grandmother Colon cancer Father S/P colon polypectomy Social History Housing: House Patient Tobacco Use Status: Never used Tobacco e-Cigarette/Vaping Use: Never Used Second Hand Smoke Exposure: No service: Yes Current occupational status: employed Current occupation: [employer] Current occupational exposures/hazards: Yes Cognitive needs: No Hearing needs: No Vision needs: No Review of Systems Const Denies weight gain and Denies weight loss ENT Reports no additional complaints, Denies dysphagia and Denies odynophagia Card Reports no additional complaints Resp Reports no additional complaints GI Denies abdominal pain, Denies belching, Denies melena, Denies bloating, Denies change in bowel habits, Denies dysphagia, Denies excessive flatus, Denies dyspepsia, Denies heartburn, Denies diarrhea, Denies loose stools, Denies na usea, Denies odynophagia and Denies vomiting Reports no additional complaints Musc Reports no additional complaints Neuro Reports no additional complaints Psych Reports no additional complaints Endo Reports no additional complaints Physical Exam Vital Signs: Last Vital Signs Pulse 64 09/09/24 08:15 BP 126/66 09/09/24 08:15 Pulse Ox 100 09/09/24 08:15 Oxygen Delivery Method Room Air 09/09/24 08:15 BMI result Body Mass Index 25.8 Const General: healthy appearing, no acute distress and well developed Nutritional Appearance: well nourished Orientation/consciousness: patient oriented x3 Resp Effort & Inspection: normal respiratory effort, able to speak in complete sentences, no tracheal deviation and symmetric chest movement Auscultation: clear to auscultation bilaterally Cardio Rate: regular rate GI Inspection: Yes normal to inspection and No distended Palpation (GI): Soft to palpation, not firm, nontender and No hepatosplenomegaly present Auscultation: normal bowel sounds General: Yes no CVA tenderness Back/Spine/Pelvis Back: no CVA tenderness Skin General skin exam: elasticity normal, turgor normal and dry skin Neuro General: patient oriented x3 Psych Appearance: grossly normal Mental Status: mental status grossly normal Assessment & Plan Assessment & Plan (1) Screening for colon cancer: Code(s): Z12.11 - Encounter for screening for malignant neoplasm of colon Category: Medical (2) Family history of colon polyps, unspecified: Code(s): Z83.719 - Family history of colon polyps, unspecified Category: Medical Plan Patient denies any GI, cardiac or respiratory symptoms.? Denies any issues with anesthesia in the past.? Denies any history of sleep apnea.? No history infectious diseases in the past or present.? Not on any anticoagulation therapy.? Family history of CRC.? Patient denies melena, hematochezia, unintentional weight loss or ribbon like stools.? Discussed at length the pre- procedure,? prep, diet & medications as well as what to expect prior, during and after the procedure.?? Stressed the importance of good bowel prep.? Recommended the use of Vaseline or Calmoseptine OTC & baby wipes with bowel movements to promote comfort.? ?Patient verbalizes understanding and agrees to plan of care.? He was given the opportunity to ask questions and all questions answered.? We will see him after the procedure.? Medications: New bisacodyl (Dulcolax (bisacodyl)) take 4 tabs at noon the day before your colonoscopy 20 mg (4 x 5 mg) PO ONCE 4 tabs 0RF 1 day Z12.11 - Encounter for screening for malignant neoplasm of colon polyethylene glycol 3350 (Miralax) As directed by gastro[facility]ology department at [facility] 238 grams PO ONCE 238 grams 0RF Z12.11 - Encounter for screening for malignant neoplasm of colon Coding Level of Care Code New Pt Level 3 (93336) Diagnoses Screening for colon cancer Z12.11 Family history of colon polyps, unspecified Z83.719 Time Spent (min) 40 Comment 30 minutes spent with patient and additional 10 minutes spent reviewing his records
[2024-09-09 08:15] VITALS: BP 126/66; PULSE 64; O2SAT 100; BMI 25.8
== END 2024-09-09 08:50 | disposition home or self-care (01) ==
PROVIDERS: PCP Family Medicine; Visit Provider Nurse Practitioner Family
DX: Z01.818 Encounter for other preprocedural examination (principal); Z12.11 Encounter for screening for malignant neoplasm of colon; Z83.719 Family history of colon polyps, unspecified
CPT/HCPCS: S0285

== ENCOUNTER 2024-10-03 06:15 | Outpatient (REF) | payer BC, SELFPAY ==
[2024-10-03 07:24] LABS: Estimated Average Glucose 126 mg/dL
[2024-10-03 07:47] LABS: Alanine Aminotransferase 18 U/L (0-40); Albumin Level 4.2 g/dL (3.5-5.0); Alkaline Phosphatase 63 U/L (39-117); Anion Gap 10 (12-20); Aspartate Amino Transferase 22 U/L (5-37); Bilirubin Total 0.4 mg/dL (0.0-1.0); Blood Urea Nitrogen 16 mg/dL (9-16); Calcium 9.4 mg/dL (8.4-10.2); Carbon Dioxide 27 mmol/L (22-29); Chloride 107 mmol/L (96-108); Cholesterol 161 mg/dL (<200); Estimated Glomerular Filt Rate > 60; Glucose Fasting 118 mg/dL (60-99); HDL Cholesterol 53 mg/dL (>40); LDL Cholesterol Calculated 90 mg/dL (<100); Potassium 4.2 mmol/L (3.3-5.1); Sodium 140 mmol/L (135-145); Total Protein 7.2 g/dL (6.5-8.0); Triglycerides 90 mg/dL (<150)
== END 2024-10-03 06:16 | disposition home or self-care (01) ==
LOC: HO.LAB 06:15
PROVIDERS: PCP Family Medicine; Visit Provider Family Medicine
DX: Z00.00 Encounter for general adult medical examination without abnormal findings (principal); E11.9 Type 2 diabetes mellitus without complications; E78.1 Pure hyperglyceridemia
CPT/HCPCS: 36415; 80053; 80061; 83036

== ENCOUNTER 2024-10-07 08:22 | Outpatient (AMB) | payer BC, SELFPAY ==
--- OUTSIDE RECORDS SUMMARY | 2024-10-07 08:38 | XMS_ITS | Clinical Summary ---
Author Organization [facility] Address [address] [place] [address] Care Team Providers Care Ceramic Sprayer Name Role Phone Manuel Peters MD Primary Care Provider [phone] Surgical History Surgery Date Site/Laterality Comments NO PAST SURGERIES PROCEDURE:NO PAST SURGERIES ANKLE FRACTURE SURGERY 07/10/2017 Right PROCEDURE:ANKLE FRACTURE SURGERY;COMMENT:Procedure: ORIF RIGHT MEDIAL MALLEOLUS; Surgeon: Ryan Graves MD; Location: [facility]; [facility]; Laterality: Right; Medical History Medical History Date [...] age to complete this topic Care Teams Ceramic Sprayer Relationship Specialty Start Date End Date Manuel Peters MD PCP - General Blast Furnace Auxiliaries Supervisor 07/06/17
--- OUTSIDE RECORDS SUMMARY | 2024-10-07 08:38 | XMS_ITS | Clinical Summary ---
Author Organization [facility] Address [address] [place] [address] Care Team Providers Care Jewelry Appraiser Name Role Phone Manuel Peters MD Primary Care Provider [phone] Allergies No known active allergies Medications Medication [...] on file Medical Devices Implanted Type Area Net Wpf Developer Device Identifier Shelf Expiration Date Model / Serial / Lot Screw Lcp Long Thread 42mm 4mm 5mm Hai Self [employer] - [id number] - [id number] Implanted:Qty: 2 on 07/10/2017 by [place] [facility] Right: [employer] [id number] / / Care Teams Jewelry Appraiser Relationship Specialty Start Date End Date Manuel Peters MD [address] [place] [address] PCP - General Preliminary School Psychologist 07/06/17
--- OUTSIDE RECORDS SUMMARY | 2024-10-07 08:38 | XMS_ITS | Clinical Summary ---
Author Organization [facility] Address [address] [place] [address] Care Team Providers Care Manager Energy Name Role Phone Gene Romero MD Primary Care Provider [phone] Allergies No known active allergies Medications Medication Sig Dispensed Refills Start Date End Date Status fenofibrate (TRIGLIDE) 160 MG tablet Take 160 mg by mouth. FOR 90 DAYS 05/26/2024 Active predniSONE (DELTASONE) 50 MG tabletIndications:Dada rgic dermatitis Take 1 tablet (50 mg total) by mouth daily. With food. 5 tablet 06/20/2024 Active Active Problems No known active problems Social History Tobacco Use Types Packs/Day Years [...] series) 2000 Influenza Vaccine 02/07/2024 COVID-19 Vaccine (1 - 2023-2 5 season) 2024 HPV Vaccines Aged Out No longer eligi ble based on patient's age to complete this topic Pneumococcal Vaccine: Pediat jaskaran (0-5 Years) and At-Risk Patients (6 to 49 Years) Aged Out No longer eligible b ased on patient's age to complete this topic Care Teams Manager Energy Relationship Specialty Start Date End Date Gene Romero MD [address] [place] [address] [address] [place] [id number] PCP - General Family Medicine 06/20/24
--- OUTSIDE RECORDS SUMMARY | 2024-10-07 08:38 | XMS_ITS | Clinical Summary ---
Author Organization [facility] Address [address] [place] [address] Care Team Providers Care Help Desk Specialist Name Role Phone Manuel Peters Primary Care [...] age to complete this topic Care Teams Help Desk Specialist Relationship Specialty Start Date End Date Manuel Peters PCP - General 02/12/23
--- OUTSIDE RECORDS SUMMARY | 2024-10-07 08:38 | XMS_ITS | Encounter Summary ---
Author Organization [facility] Address [address] [place] [address] Care Team Providers Care Manager Oracle Name Role Phone Gene Romero MD Primary Care Provider [phone] Encounter Details Date Type Department Care Team (Late st Contact Info) Description 06/20/2024 Scanned Document [address] [facility] [address] [place] [phone] Provider, Generic Social History Tobacco Use [...] on filedocumented in this encounter Care Teams Manager Oracle Relationship Specialty Start Date End Date Gene Romero MD [address] [place] [address] [place] [address] PCP - General Family Medicine 06/20/24 documented as of this encounter
--- OUTSIDE RECORDS SUMMARY | 2024-10-07 08:38 | XMS_ITS | Encounter Summary ---
Author Organization [facility] Address [address] [place] [address] Care Team Providers Care Psychology Technician Name Role Phone Gene Romero MD Primary Care Provider [phone] Encounter Details Date Type Department Care Team (Late st Contact Info) Description 06/20/2024 Scanned Document [address] [facility] [address] [place] [phone] Provider, Generic Social History Tobacco Use [...] on filedocumented in this encounter Care Teams Psychology Technician Relationship Specialty Start Date End Date Gene Romero MD [address] [place] [address] [place] [address] PCP - General Family Medicine 06/20/24 documented as of this encounter
--- NOTE | 2024-10-07 08:49 | A.OFFPC_ITS ---
Vital Signs 10/07/24 08:51 Height 6 ft 2 in Weight 194 lb 8 oz BMI 25.0 BP 106/60 Blood Pressure Location Lt brachial Position Sitting Respiration 14 Pulse 67 Pulse Source Pulse Oximeter Temp 98.7 F Temp Source Oral Pulse Oximetry (%) 99 Oxygen Delivery Method Room Air Intake Visit Reasons: f/u diabetes Intake Note: patient is scheduled for dm follow up Patient Assistant Required: No Allergies No Known Allergies Allergy (Verified 10/07/24 08:49) Tobacco use date assessed: 04/07/24 Dental Screening Dental Screen Date: 04/07/24 HPI f/u diabetes HPI Details Follow-up?diabetes?and?hypertriglyceridemia A1c?was?8.8%.??Started?him?on?metformin?b.i.d. He?is?tolerating?this?medication?well?and?A1c?on?10/03/2024?was?6.0%. He?has?already?been?taking?fenofibrate.??Rechecking?his?triglycerides?which?were ?originally?over?500?and?now?at?95 He?does?not?have?an?eye?doctor Feels?well.??No?new?complaints. PFSH Family History Maternal Grandmother Colon cancer Father S/P colon polypectomy Social History Housing: House Patient Tobacco Use Status: Never used Tobacco e-Cigarette/Vaping Use: Never Used Second Hand Smoke Exposure: No service: Yes Current occupational status: employed Current occupation: [employer] Current occupational exposures/hazards: Yes Cognitive needs: No Hearing needs: No Vision needs: No Questionnaire PHQ-9 Over the last 2 weeks, how often have you been bothered by any of the following problems? 1. Little interest or pleasure in doing things: not at all 2. Feeling down, depressed, or hopeless: not at all 3. Trouble falling or staying asleep, or sleeping too much: not at all 4. Feeling tired or having little energy: not at all 5. Poor appetite or overeating: not at all 6. Feeling bad about yourself - or that you are a failure or have let yourself or your family down: not at all 7. Trouble concentrating on things, such as reading the newspaper or watching television: not at all 8. Moving or speaking so slowly that other people could have noticed. Or the opposite - being so fidgety or restless that you have been moving around a lot more than usual: not at all 9. Thoughts that you would be better off or of hurting yourself in some way: not at all Total score: 0 Source: Developed by Drs. Clarence Thorne, Yue Gaytan, Marty Gray and colleagues, with an educational angela from [employer]. Thrive Questionnaire Date Thrive assessed: 04/07/24 I am a: Patient What is your living situation today?: I have a steady place to live Within the past 12 months, did the food you bought not last and you didn't have the money to get more?: Never true Within the past 12 months, did you worry whether your food would run out before you got money to buy more?: Never true Do you have trouble paying for medicines?: No Do you have trouble getting transportation to medical appointments?: No Do you have trouble paying your heating and electricity bill?: No Do you have trouble taking care of your child, family member or friend?: No Do you have trouble with day-to-day activities such as bathing, preparing meals, shopping, managing finances, etc.?: No Are you currently unemployed and looking for a job?: No Are you interested in more education?: No Please select the resources that you would like help with: None Currently or been in a relationship where the following occur: No concerns reported THRIVE Score: 0 AUDIT C Alcohol Use Questionnaire (AUDIT-C) 1. How often do you have a drink containing alcohol?: Monthly or less 2. How many drinks containing alcohol do you have on a typical day when you are drinking?: 1 or 2 3. How often do you have six or more drinks on one occasion?: Never Total Score: 1 JAIMIE-7 AMB Questionnaire JAIMIE-7 Date JAIMIE - 7 assessed: 04/07/24 Feeling nervous, anxious, or on edge: 0 = Not at all Not being able to stop or control worryin = Not at all Worrying too much about different things: 0 = Not at all Trouble relaxin = Not at all Being so restless that it is hard to sit still: 0 = Not at all Becoming easily annoyed or irritable: 0 = Not at all Feeling afraid as if something awful might happen: 0 = Not at all Total JAIMIE-7 score (0-4 normal; 5-9 mild; 10-14 moderate; 15-21 severe): 0 Source: Developed by Drs. Clarence Thorne, Yue Gaytan, Marty Gray and colleagues, with an educational angela from [employer]. Review of Systems Const Denies chills, Denies fatigue, Denies fever(s), Denies headache(s) and Denies weakness ENT Denies dizziness and Denies headache(s) Card Denies chest pain, Denies lightheadedness, Denies dyspnea and Denies other (Palpitations) Resp Denies cough, Denies dyspnea, Denies wheezing and Denies other ( shortness of breath) Musc Denies numbness and Denies tingling Neuro Denies dizziness, Denies headache(s), Denies numbness, Denies tingling, Denies paresthesias and Denies weakness Psych Denies anxiety and Denies depression Endo Denies fatigue Aller/Immun Denies wheezing Physical exam (Primary Care) Vital Signs: Last Vital Signs Temp 98.7 F 10/07/24 08:51 Pulse 67 10/07/24 08:51 Resp 14 10/07/24 08:51 BP 106/60 10/07/24 08:51 Pulse Ox 99 10/07/24 08:51 Oxygen Delivery Method Room Air 10/07/24 08:51 BMI result Body Mass Index 25.0 Tobacco/Smoking Status: Tobacco use Status Tobacco use date assessed 04/07/24 10/07/24 08:53 Patient Tobacco Use Status Never used Tobacco 10/07/24 08:53 e-Cigarette/Vaping Use Never Used 10/07/24 08:53 PHQ-9: PHQ-9 Score PHQ-9: Total score 0 10/07/24 08:53 Thrive Assessment: Date of Thrive Assessment Date Thrive assessed 04/07/24 10/07/24 08:53 Currently or been in a relationship where the following occur: No concerns reported Const General: no acute distress and well developed Nutritional Appearance: well nourished Orientation/consciousness: patient oriented x3 [facility] Head: Yes normocephalic and Yes atraumatic Eyes General: appearance normal, both eyes and all related structures Pupils: Equal, round and reactive pupils present EOM: EOMs intact bilaterally Resp Effort & Inspection: normal respiratory effort Auscultation: clear to auscultation bilaterally Cardio Rate: regular rate Rhythm: regular rhythm Heart sounds: S1 normal heart sound present, S2 normal heart sound present, no gallops, no murmurs and no rubs Neuro General: patient oriented x3 and gait normal Cranial nerves: Yes Equal, round and reactive pupils present Psych Affect: normal affect Coding Level of Care Code Est Pt Level 3 (24007) Diagnoses Diabetes E11.9 Hypertriglyceridemia E78.1 Assessment & Plan Assessment & Plan (1) Diabetes: Code(s): E11.9 - Type 2 diabetes mellitus without complications Category: Medical Plan: A1c?now?in?good?control.??Goal?is?less?than?7.0% Continue?current?medication Continue?diabetic?diet Will?refer?to?ophthalmology (2) Hypertriglyceridemia: Code(s): E78.1 - Pure hyperglyceridemia Category: Medical Plan: Controlled?with?fenofibrate.??Patien t?would?like?to?try?to?wean?off?of?this.??Will?decrease?fenofibrate?to?80?mg?deepti ly Recheck?in?a?few?months Orders: Orders Comprehensive [place]. Panel Fast Today E78.1 - Pure hyperglyceridemia, Z00.00 - Encounter for general adult medical examination without abnormal findings Lipid Panel Today E78.1 - Pure hyperglyceridemia, Z00.00 - Encounter for general adult medical examination without abnormal findings Hemoglobin A1c Today E11.9 - Type 2 diabetes mellitus without complications, R73.01 - Impaired fasting glucose Referrals Ophthalmology Referral E11.9 - Type 2 diabetes mellitus without complications Medications: Changed From fenofibrate 160 mg PO DAILY 90 days 90 tabs 2RF E11.9 - Type 2 diabetes mellitus without complications To fenofibrate 80 mg (1/2 x 160 mg) PO DAILY 90 days 45 tabs 2RF E11.9 - Type 2 diabetes mellitus without complications
[2024-10-07 08:51] VITALS: BP 106/60; PULSE 67; RESP 14; TEMP 37.1; O2SAT 99; BMI 25.0
== END 2024-10-07 12:06 | disposition home or self-care (01) ==
LOC: HO.HMCFM 08:23
PROVIDERS: PCP Family Medicine; Visit Provider Family Medicine
DX: E11.9 Type 2 diabetes mellitus without complications (principal); E78.1 Pure hyperglyceridemia

== ENCOUNTER → 2024-10-07 08:22 | Outpatient (BNVA) | payer BC, SELFPAY | PROVIDERS: PCP Family Medicine; Visit Provider Family Medicine ==

== ENCOUNTER 2024-11-04 07:31 | Day surgery (SDC) | payer BC, SELFPAY ==
--- NOTE | 2024-11-03 09:49 | HO.ANESPROP2 ---
Documented by User: Belem Quarles NP 11/03/24 09:49 HPI - Anesthesia Eval Consult details Narrative: 44yo M for Colonoscopy [facility] Active Problems Active Problems: All Active Problems Diabetes (Acute) Hypertriglyceridemia (Acute) Elevated fasting glucose (Acute) Hyperlipidemia (Acute) Family history of colon polyps, unspecified (Acute) Screening for colon cancer (Acute) Screening for prostate cancer (Acute) Adult general medical exam (Acute) Laboratory exam ordered as part of routine general medical examination (Acute) Past Medical History Medical History Hypertriglyceridemia Diabetes Family History Family History Maternal Grandmother Colon cancer Father S/P colon polypectomy Surgical History Surgical History History of ankle surgery Social History Social History Housing: House Are you a primary caregivers non medical to a significant other at home: No Do you presently have visiting nurse or other home services: No Patient Tobacco Use Status: Never used Tobacco e-Cigarette/Vaping Use: Never Used Second Hand Smoke Exposure: No Have you been hit, kicked, punched, or otherwise hurt by someone within the past year? If so, by whom?: No Are you DNR?: No Advance Directives: No Advance Directives Information Provided: Yes Poor oral hygiene: No service: Yes Current occupational status: employed Current occupation: [employer] Current occupational exposures/hazards: Yes Cognitive needs: No Hearing needs: No Vision needs: No Meds Allergies Allergy/AdvReac Type Severity Reaction Status Date / Time No Known Allergies Allergy Verified 11/04/24 08:06 Assessment and Plan Assessment Anesthesia Assessment: Chart Reviewed Documented by User: Juhi Cavazos MD 11/04/24 09:29 [facility] Past Medical History Medical History Hypertriglyceridemia Diabetes Family History Family History Maternal Grandmother Colon cancer Father S/P colon polypectomy Family history of problems with anesthesia: No Surgical History Surgical History History of ankle surgery History of Problems with Anesthesia: No Social History Social History Housing: House Are you a primary caregivers non medical to a significant other at home: No Do you presently have visiting nurse or other home services: No Patient Tobacco Use Status: Never used Tobacco e-Cigarette/Vaping Use: Never Used Second Hand Smoke Exposure: No Have you been hit, kicked, punched, or otherwise hurt by someone within the past year? If so, by whom?: No Are you DNR?: No Advance Directives: No Advance Directives Information Provided: Yes Poor oral hygiene: No service: Yes Current occupational status: employed Current occupation: [employer] Current occupational exposures/hazards: Yes Cognitive needs: No Hearing needs: No Vision needs: No Meds Allergies Allergy/AdvReac Type Severity Reaction Status Date / Time No Known Allergies Allergy Verified 11/04/24 08:06 Exam Height,Weight and Vital Signs: Height 6 ft 2 in Weight 84.3 kg Vital Signs Temp Pulse Resp BP Pulse Ox O2 Del Method 11/04/24 08:19 98.1 F 60 18 106/62 100 Room Air Pertinent Lab Results Pertinent Lab Results: Lab Results 11/04/24 Range/Units 08:14 POC Glucose 120 H (60-115) mg/dL Airway Mallampati Class: II TM Dist: >3cm Neck ROM: Full Loose/Missing/Broken Teeth: Yes (Missing wisdom teeth. Denies broken or loose teeth ) Heart: RRR Lungs: CTAB Assessment and Plan Assessment Anesthesia Assessment: Anesthesia Plan Discussed and Chart Reviewed Final Anesthetic Review Family History of Problems with Anesthesia: No History of Problems with Anesthesia: No NPO: Yes ASA Class: II Final Preanesthetic Review: No Changes in Pt Med Stat, Meds/Allgs Chart Reviewed, Consent Obtained/Reviewed and Anes Risks/Benef Reviewed Patient Risk: Low Procedure Risk: Low Assessment/Block/Sedation in SS: Assess/Block/Sedation-SS Anesthetic Plan Anesthetic Plan: TIVA Disposition: Standard PACU
[2024-11-04 08:05] VITALS: BMI 23.9
[2024-11-04] MEDS: Lactated Ringers 1,000 ML 100 ML IVCONT (08:11)
[2024-11-04 08:19] VITALS: BP 106/62; PULSE 60; RESP 18; TEMP 36.7; O2SAT 100
[2024-11-04 08:20] LABS: Glucose, Whole Blood 120 mg/dL (60-115)
--- NOTE | 2024-11-04 09:05 | MHC.SHP ---
Pre-Procedural Eval Section A - 24 Hr Update-Section A only Date of Service: 11/04/24 Section B - Complete if H&P > 30 days Chief Complaint: screening Relevant Family History (Specify if Yes): Yes Present Medications: see Short Stay Collaborative assessment Medical History: No relevant PMH History of Previous Operations: No relevant previous surgery Allergies: Allergies Allergy/AdvReac Type Severity Reaction Status Date / Time No Known Allergies Allergy Verified 11/04/24 08:06 Review of Systems Review of Systems Comment: 10 point ROS negative Exam Exam Comment: Gen appear: No acute distress HEENT: no icterus Chest: No overt resp distress Abd: soft, nontender, nondistended Psych: Stable affect, answering questions appropriately Neuro: A/Ox3 noted to move all extremities spontaneously Ext: no peripheral edema Plan Diagnosis/Plan: Unchanged I have reviewed the history and physical and performed a pertinent physical examination on my patient. No changes have occurred unless specified. Time Spent With Patient Time: Total time managing care of this patient today ____ minutes.
--- NOTE | 2024-11-04 10:17 | P.OPN-COLO_ITS ---
Colonoscopy Operative Note Operative Note Date of Service: 11/04/24 Narrative: Procedure: Colonoscopy Indication: Fam hx of colon cancer and colon polyps Endoscopist: Ary Garcia MD Anesthesia Provider: Dr Juhi Cavazos Anesthesia type: MAC Instrument: Olympus [id number]-H190L Consent: Indication, risks vs benefits, and alternatives were discussed with the patient who gave written informed consent to proceed. Monitoring: EKG, pulse, pulse oximetry and blood pressure were monitored throughout the procedure. Please see anesthesia flowsheet. Procedure: The patient was brought to the procedure room and placed in the left lateral decubitus position. IV medications were administered by the anesthesia provider in attendance. A digital rectal exam was performed which was normal. A distal attachment cap was affixed to the tip of the colonoscope which was then inserted through the anus and advanced through the colon to the cecum at 75 cm,and terminal ileum. Appendiceal orifice and ileocecal valve were identified. Mucosa was carefully examined under high definition white light as the instrument was slowly withdrawn in a retrograde panoramic fashion. Retroflexion was performed in rectum. The procedure was not difficult. There were no immediate obvious complications. The quality of the prep was BBPS: 3+2+3 = adequate Withdrawal time 10 minutes. Limitations: No limitations. Findings: Mucosa: Normal to cecum and terminal ileum. Protruding lesions: * 1 sessile polyp of size 2 mm in transverse colon. Cold snare polypectomy was performed. The polyp was completely removed and retrieved. * Medium internal hemorrhoids without stigmata of recent bleeding. Impression: 1. Normal colon and terminal ileum mucosa 2. Total of 1 polyp removed 3. Internal hemorrhoids Recommendations: - Follow path results. - Repeat colonoscopy in 5 years due to fam hx.
[2024-11-04 10:23] VITALS: BP 95/50; PULSE 59; RESP 20; TEMP 36.3; O2SAT 99
[2024-11-04 10:38] VITALS: BP 109/65; PULSE 55; RESP 20; O2SAT 100
[2024-11-04 10:53] VITALS: BP 105/65; PULSE 64; RESP 20; TEMP 36.2; O2SAT 100
== END 2024-11-04 11:21 | disposition home or self-care (01) ==
PROVIDERS: PCP Family Medicine; Visit Provider Internal Medicine
PROC: 0DJD8ZZ Inspection of Lower Intestinal Tract, Via Natural or Artificial Opening Endoscopic (ICD-10-PCS; CPT 45378; principal; 2024-11-04 09:20)
DX: Z12.11 Encounter for screening for malignant neoplasm of colon (principal); Z83.719 Family history of colon polyps, unspecified; K63.5 Polyp of colon; K64.8 Other hemorrhoids; E11.9 Type 2 diabetes mellitus without complications; E78.1 Pure hyperglyceridemia; Z79.84 Long term (current) use of oral hypoglycemic drugs; Z79.899 Other long term (current) drug therapy
CPT/HCPCS: 45385; 82947; 88305; J2003; J2704

== ENCOUNTER → 2024-11-04 07:31 | Outpatient (BNV) | payer BC, SELFPAY | PROVIDERS: PCP Family Medicine; Visit Provider Internal Medicine | DX: Z12.11 Encounter for screening for malignant neoplasm of colon (principal); Z80.0 Family history of malignant neoplasm of digestive organs; K63.5 Polyp of colon; K64.8 Other hemorrhoids | CPT/HCPCS: 45385 ==

== ENCOUNTER 2025-04-17 06:49 | Outpatient (REF) | payer BC, SELFPAY ==
--- OUTSIDE RECORDS SUMMARY | 2025-04-17 06:51 | XMS_ITS | Clinical Summary ---
Author Organization [facility] Address [address] [place] [id number] Care Team Providers Care Structural Iron Erector Name Role Phone Gene Romero MD Primary Care Provider [phone] Allergies No known active allergies Medications fenofibrate (TRIGLIDE) 160 MG tablet Take 160 mg by mouth. FOR 90 DAYS 05/26/2024 Active predniSONE (DELTASONE) 50 MG tabletIndication s:Allergic dermatitis Take 1 tablet (50 mg total) by mouth daily. With food. 5 tablet 06/20/2024 Active Active Problems No known active problems Social History Tobacco Use Types Packs/Day Years Used Date Smoking Tobacco: Never Smokeless Tobacco: Never Tobacco Cessation:Counseling Given: Not Answered Sex and Gender Information Value Date Recorded Sex Assigned at Not on file Legal Sex Male 4:03 PM EDT Gender Identity Not on file Sexual Orientation Not on file Last Filed Vital Signs Vital Sign Reading Time Taken Comments Blood Pressure 138/92 06/20/2024 10:07 AM EST Pulse 64 06/20/2024 10:07 AM EST Temperature 36.9 C (98.4 F) 06/20/2024 10:07 AM EST Respiratory Rate 18 06/20/2024 10:07 AM EST [...] - 19+ 3-dose series) 2000 Influenza Vaccine 02/06/2025 COVID-19 Vaccine (1 - 2023-2 5 season) 2025 HPV Vaccines (No Doses Required) Completed Pneumococcal Vaccine: Pediat jaskaran (0-5 Years) and At-Risk Patients (6 to 49 Years) Aged Out No longer eligible b ased on patient's age to complete this topic Insurance [facility] Care Teams Structural Iron Erector Relationship Specialty Start Date End Date Gene Romero MD [address] [place] [address] [place] [address] PCP - General Family Medicine 06/20/24
--- OUTSIDE RECORDS SUMMARY | 2025-04-17 06:51 | XMS_ITS | Encounter Summary ---
Author Organization [facility] Address [address] [place] [address] Care Team Providers Care Metal Furniture Assembler Name Role Phone Gene Romero MD Primary Care Provider [phone] Encounter Details Date Type Department Care Team (Late st Contact Info) Description 06/20/2024 Scanned Document [address] [facility] [address] [place] [id number] Provider, Generic Social History Tobacco Use [...] on filedocumented in this encounter Care Teams Metal Furniture Assembler Relationship Specialty Start Date End Date Gene Romero MD [address] [place] [address] [place] [address] PCP - General Family Medicine 06/20/24 documented as of this encounter
--- OUTSIDE RECORDS SUMMARY | 2025-04-17 06:51 | XMS_ITS | Encounter Summary ---
Author Organization [facility] Address [address] [place] [address] Care Team Providers Care Business Ethics Professor Name Role Phone Gene Romero MD Primary Care Provider [phone] Encounter Details Date Type Department Care Team (Late st Contact Info) Description 06/20/2024 Scanned Document [address] [facility] [address] [place] [id number] Provider, Generic Social History Tobacco Use [...] on filedocumented in this encounter Care Teams Business Ethics Professor Relationship Specialty Start Date End Date Gene Romero MD [address] [place] [address] [place] [address] PCP - General Family Medicine 06/20/24 documented as of this encounter
--- OUTSIDE RECORDS SUMMARY | 2025-04-17 06:51 | XMS_ITS | Clinical Summary ---
Author Organization [facility] Address [address] [place] [address] Care Team Providers Care Permit Technician Name Role Phone Manuel Peters MD Primary Care Provider [phone] Allergies No known active allergies Medications Medication [...] 63 07/10/2017 3:44 PM EST Temperature 36.7 C (98.1 F) 07/10/2017 3:15 PM EST Respiratory Rate 18 07/10/2017 3:44 PM EST Oxygen Saturation 98% 07/10/2017 3:44 PM EST Inhaled Oxygen Concentration - - Weight 95.3 kg (210 lb) 07/06/2017 2:35 PM EST Height 188 cm (6' 2 ) 07/06/2017 2:35 PM EST Body Mass Index 26.96 07/06/2017 2:35 PM EST Plan of Treatment Not on file Medical Devices Implanted Type Area Dairy Cattle Farmer Device Identifier Shelf Expiration Date Model / Serial / Lot Screw Lcp Long Thread 42mm 4mm 5mm [employer] - [id number] - [id number] Implanted:Qty: 2 on 07/10/2017 by Ryan Graves MD at [facility] and Med Right: [employer] [id number] / / Care Teams Permit Technician Relationship Specialty Start Date End Date Manuel Peters MD [address] [place] [id number] PCP - General [employer] Report Developer 07/06/17
--- OUTSIDE RECORDS SUMMARY | 2025-04-17 06:51 | XMS_ITS ---
Author Name [facility] Organization Unknown History of Medication Use Medication Directions Dispensed Refills Start Date End Date Stat us predniSONE (DELTASONE) 50 MG tablet Take 1 tablet (50 mg total) by mouth daily. With food. 06/20/2024 06/26/2024 aborted fenofibrate (TRIGLIDE) 160 MG tablet Take 160 mg by mouth. FOR 90 DAYS 05/26/2024 active predniSONE (DELTASONE) 10 MG tablet Take 60 [...] daily for 2 days. Take with food. 01/26/2023 06/20/2024 aborted Problems Problem Status Onset Date Problem Type Date of Resoluti on Source Allergic dermat[facility] Encounter Type Encounter Reason Primary Diagnosis Location Date Ambulatory Rash Rash PreciouStatus 06/20/2024 Ambulatory Allergic contact dermatitis due to plants, except food [facility] 01/26/2023 Ambulatory Contact with and (suspected) exposure to covid-19 [facility] 07/15/2021 Care Team Organization Name Specialty Phone Email Start Date End Da te [facility] NO PCP Primary Care 06/20/2024 [facility] ANNIE BUI Primary Care 06/20/2024 [facility] 01/26/2023 09/24/2024 [facility] 07/15/2021 07/15/2021
[2025-04-17 07:22] LABS: Total Hemoglobin (HGBA1C) 3819.0043 umol/L
[2025-04-17 07:46] LABS: Alanine Aminotransferase 19 U/L (0-40); Albumin Level 4.5 g/dL (3.5-5.0); Alkaline Phosphatase 83 U/L (39-117); Anion Gap 9 (12-20); Aspartate Amino Transferase 22 U/L (5-37); Blood Urea Nitrogen 18 mg/dL (9-16); Calcium 9.5 mg/dL (8.4-10.2); Carbon Dioxide 30 mmol/L (22-29); Chloride 106 mmol/L (96-108); Cholesterol 194 mg/dL (<200); Estimated Glomerular Filt Rate > 60; HDL Cholesterol 64 mg/dL (>40); Potassium 4.5 mmol/L (3.3-5.1); Sodium 140 mmol/L (135-145); Total Protein 7.6 g/dL (6.5-8.0); Triglycerides 98 mg/dL (<150)
== END 2025-04-17 06:50 | disposition home or self-care (01) ==
LOC: HO.LAB 06:49
PROVIDERS: PCP Family Medicine; Visit Provider Family Medicine
DX: Z00.00 Encounter for general adult medical examination without abnormal findings (principal); E11.9 Type 2 diabetes mellitus without complications; E78.1 Pure hyperglyceridemia
CPT/HCPCS: 36415; 80053; 80061; 83036

== ENCOUNTER 2025-04-21 11:18 | Outpatient (AMB) | payer BC, SELFPAY ==
--- NOTE | 2025-04-21 11:22 | MHC.PC.OV ---
Vital Signs 04/21/25 11:26 Height 6 ft 2 in Weight 188 lb 6 oz BMI 24.2 BP 112/68 Blood Pressure Location Rt brachial Position Sitting Respiration 16 Pulse 67 Pulse Source Pulse Oximeter Temp 97.3 F Temp Source Temporal Artery Scan Pulse Oximetry (%) 97 Oxygen Delivery Method Room Air Intake Visit Reasons: DM & Triglycerides /Diabetic foot exam Intake Note: Charles presents in the office today for his diabetes, diabetic foot exam and his triglycerides. Allergies No Known Allergies Allergy (Verified 04/21/25 11:25) Tobacco use date assessed: 04/21/25 Dental Screening Dental Screen Date: 04/21/25 Did you have a dental visit in the last 12 months?: Yes Did you have a dental problem in the last 6 months where you did not have access to dental care?: No Was dental information given to patient?: Patient has dentist HPI DM & Triglycerides /Diabetic foot exam HPI Details 44 y/o male presents to f/u diabetes, triglycerides. Labs drawn 04/17/25. Reviewed labs with pt. Fasting glucose 123. A1c 5.7%. He is on metformin 500mg b.i.d Triglycerides 98. TC 194. LDL 111. HDL 64. PFSH Medical History Hypertriglyceridemia Diabetes Surgical History History of ankle surgery Family History (Updated 04/21/25 @ 11:25 by Jaycee Cruz CMA) Maternal Grandmother Colon cancer Father S/P colon polypectomy Social History (Updated 04/21/25 @ 11:26 by Jaycee Cruz CMA) Housing: House Are you a primary critical care rn to a significant other at home: No Do you presently have visiting nurse or other home services: No Alcohol intake: current Patient Tobacco Use Status: Never used Tobacco e-Cigarette/Vaping Use: Never Used Second Hand Smoke Exposure: No Use of substances other than those prescribed or required for medical reasons: No service: Yes Current occupational status: employed Current occupation: [employer] Current occupational exposures/hazards: Yes Cognitive needs: No Hearing needs: No Vision needs: No Questionnaire Thrive Questionnaire Date Thrive assessed: 09/30/24 I am a: Patient What is your living situation today?: I have a steady place to live Within the past 12 months, did the food you bought not last and you didn't have the money to get more?: Never true Within the past 12 months, did you worry whether your food would run out before you got money to buy more?: Never true Do you have trouble paying for medicines?: No Do you have trouble getting transportation to medical appointments?: No Do you have trouble paying your heating and electricity bill?: No Do you have trouble taking care of your child, family member or friend?: No Do you have trouble with day-to-day activities such as bathing, preparing meals, shopping, managing finances, etc.?: No Are you currently unemployed and looking for a job?: No Are you interested in more education?: No Please select the resources that you would like help with: None Currently or been in a relationship where the following occur: No concerns reported THRIVE Score: 0 JAIMIE-7 AMB Questionnaire JAIMIE-7 Date JAIMIE - 7 assessed: 04/07/24 Source: Developed by Drs. Clarence Thorne, Yue Gaytan, Marty Gray and colleagues, with an educational angela from [employer]. Review of Systems Const Denies chills, Denies fatigue, Denies fever(s), Denies headache(s) and Denies weakness ENT Denies dizziness and Denies headache(s) Card Denies dyspnea Resp Denies cough, Denies dyspnea, Denies wheezing and Denies other (shortness of breath) Musc Denies numbness and Denies tingling Neuro Denies dizziness, Denies headache(s), Denies numbness, Denies tingling and Denies weakness Psych Denies anxiety and Denies depression Endo Denies fatigue Aller/Immun Denies wheezing Physical exam (Primary Care) Vital Signs: Last Vital Signs Temp 97.3 F 04/21/25 11:26 Pulse 67 04/21/25 11:26 Resp 16 04/21/25 11:26 BP 112/68 04/21/25 11:26 Pulse Ox 97 04/21/25 11:26 Oxygen Delivery Method Room Air 04/21/25 11:26 BMI result Body Mass Index 24.2 Tobacco/Smoking Status: Tobacco use Status Tobacco use date assessed 04/21/25 04/21/25 11:28 Patient Tobacco Use Status Never used Tobacco 04/21/25 11:26 e-Cigarette/Vaping Use Never Used 04/21/25 11:26 Thrive Assessment: Date of Thrive Assessment Date Thrive assessed 09/30/24 04/21/25 11:24 Currently or been in a relationship where the following occur: No concerns reported Const General: well developed; No acute distress Nutritional Appearance: well nourished Orientation/consciousness: patient oriented x3 HENMT Head: Yes normocephalic and Yes atraumatic Eyes General: appearance normal, both eyes and all related structures Pupils: Equal, round and reactive pupils present EOM: EOMs intact bilaterally Resp Effort & Inspection: normal respiratory effort Neuro General: patient oriented x3 and gait normal Cranial nerves: Yes Equal, round and reactive pupils present Psych Affect: normal affect Coding Level of Care Code Est Pt Level 3 (11022) Diagnoses Diabetes E11.9 Hyperlipidemia E78.5 Assessment & Plan Assessment & Plan (1) Diabetes: Code(s): E11.9 - Type 2 diabetes mellitus without complications Category: Medical Plan: A1c 5.7%. Good control. Goal is less than 7.0% Continue metformin as prescribed Continue working at diabetic diet, weight control and exercise Patient had a diabetic retinal exam earlier this year which showed no diabetic retinopathy Microfilament test performed today; no evidence of diabetic neuropathy. Normal test. (2) Hyperlipidemia: Code(s): E78.5 - Hyperlipidemia, unspecified Category: Medical Plan: LDL cholesterol climbed to 111 after decreasing fenofibrate. Triglycerides still controlled on fenofibrate No changes to medication regimen today. Work on a diet lower in saturated fats and cholesterol continue exercise and weight control Will recheck in about 3 months
[2025-04-21 11:26] VITALS: BP 112/68; PULSE 67; RESP 16; TEMP 36.3; O2SAT 97; BMI 24.2
--- OUTSIDE RECORDS SUMMARY | 2025-04-21 13:44 | XMS_ITS | Clinical Summary ---
Author Organization [facility] Address [address] [place] [address] Care Team Providers Care Nuclear Licensing Engineer Name Role Phone Manuel Peters MD Primary Care Provider [phone] Surgical History Surgery Date Site/Laterality Comments NO PAST SURGERIES PROCEDURE:NO PAST SURGERIES ANKLE FRACTURE SURGERY 07/10/2017 Right PROCEDURE:ANKLE FRACTURE SURGERY;COMMENT:Procedure: ORIF RIGHT MEDIAL MALLEOLUS; Surgeon: Ryan Graves MD; Location: [facility]; [facility]; Laterality: Right; Medical History Medical History [...] of 3 - 19+ 3-dose series) 2000 HPV Vaccines (1 - 3-dose SCD M series) 2008 Depression Screening 07/09/2024 COVID-19 Vaccine ( - 2023-2 5 season) 2025 Influenza Vaccine (#1) 2025 RSV Immunization Adult Patie nts (1 - 1-dose 75+ series) 2056 HIB Vaccines Aged Out No longer eligi [...] age to complete this topic Meningococcal B Vaccine Aged Out No l onger eligible based on patient's age to complete this topic Pneumococcal Vaccine: Pediat rics (0 to 5 Years) and At-Risk Patients (6 to 49 Years) Aged Out No longer eligible b ased on patient's age to complete this topic RSV Immunization Patients Un trip 20 months Aged Out No longer eligible b ased on patient's age to complete this topic Varicella Vaccines Aged Out No longer eligible based on patient's age to complete this topic Care Teams Nuclear Licensing Engineer Relationship Specialty Start Date End Date Manuel Peters MD PCP - General Sfdc Architect 07/06/17
--- OUTSIDE RECORDS SUMMARY | 2025-04-21 13:44 | XMS_ITS | Clinical Summary ---
Author Organization [facility] Address [address] [place] [id number] Care Team Providers Care Government Affairs Director Name Role Phone Gene Romero MD Primary Care Provider [phone] Allergies No known active allergies Medications fenofibrate [...] patient's age to complete this topic Insurance [facility] Care Teams Government Affairs Director Relationship Specialty Start Date End Date Gene Romero MD [address] [place] [address] [place] [id number] PCP - General Family Medicine 06/20/24
--- OUTSIDE RECORDS SUMMARY | 2025-04-21 13:44 | XMS_ITS | Encounter Summary ---
Author Organization [facility] Address [address] [place] [address] Care Team Providers Care Pre Owned Sales Manager Name Role Phone Gene Romero MD Primary Care Provider [phone] Encounter Details Date Type Department Care Team (Late st Contact Info) Description 06/20/2024 Scanned Document [address] [facility] [address] [place] [phone] Provider, Generic Social History Tobacco Use [...] on filedocumented in this encounter Care Teams Pre Owned Sales Manager Relationship Specialty Start Date End Date Gene Romero MD [address] [place] [address] [place] [address] PCP - General Family Medicine 06/20/24 documented as of this encounter
--- OUTSIDE RECORDS SUMMARY | 2025-04-21 13:44 | XMS_ITS | Clinical Summary ---
Author Organization [facility] Address [address] [place] [address] Care Team Providers Care Preparator Name Role Phone Manuel Peters Primary Care Provider Unavailabl e Active Problems Problem Noted Date Diagnosed Date Hyperglycemia 01/31/2012 Immunizations Immunization Administration Dates Next Due Tdap 01/31/2012 Social [...] 70 01/31/2012 10:24 AM EDT Temperature 36.7 C (98 F) 01/31/2012 10:24 AM EDT Respiratory Rate - [...] Tdap) 01/30/2022 01/31/2012 COVID-19 Vaccine ( - 2024-2 6 season) 2025 Influenza (#1) 2025 Zoster (Shingrix) (1 of 2) 2031 HPV Vaccine (No Doses Required) Completed Hep A Aged Out No longer eligi ble based on patient's age to complete this topic Hib Aged Out No longer eligi ble based on patient's age to complete this topic Meningococcal ACWY Aged Out No longer eligible based on patient's age to complete this topic Pneumococcal Aged Out No longer eligi ble based on patient's age to complete this topic Care Teams Preparator Relationship Specialty Start Date End Date Manuel Peters PCP - General 02/12/23
--- OUTSIDE RECORDS SUMMARY | 2025-04-21 13:44 | XMS_ITS | Encounter Summary ---
Author Organization [facility] Address [address] [place] [address] Care Team Providers Care Manager Parking Name Role Phone Gene Romero MD Primary Care Provider [phone] Encounter Details Date Type Department Care Team (Late st Contact Info) Description 06/20/2024 Scanned Document [address] [facility] [address] [place] [phone] Provider, Generic Social History Tobacco Use [...] filedocumented in this encounter Care Teams Manager Parking Relationship Specialty Start Date End Date Gene oRmero MD [address] [place] [address] [place] [id number] PCP - General Family Medicine 06/20/24 documented as of this encounter
--- OUTSIDE RECORDS SUMMARY | 2025-04-21 13:45 | XMS_ITS | Clinical Summary ---
Author Organization [facility] Address [address] [place] [address] Care Team Providers Care Consulting Analyst Name Role Phone Manuel Peters MD Primary Care Provider [phone] Allergies No known active allergies Medications Medication [...] on file Medical Devices Implanted Type Area Industrial Diamond Polisher Device Identifier Shelf Expiration Date Model / Serial / Lot Screw Lcp Long Thread 42mm 4mm 5mm [employer] - [id number] - [id number] Implanted:Qty: 2 on 07/10/2017 by Ryan Graves MD [facility] Right: [id number] / / Care Teams Consulting Analyst Relationship Specialty Start Date End Date Manuel Peters MD [address] [place] [id number] PCP - General Area Relief Pilot 07/06/17
== END 2025-04-21 11:47 | disposition home or self-care (01) ==
LOC: HO.HMCFM 11:19
PROVIDERS: PCP Family Medicine; Visit Provider Family Medicine
DX: E11.9 Type 2 diabetes mellitus without complications (principal); E78.5 Hyperlipidemia, unspecified